=== PATIENT | female | born 1990 | race Caucasian/White ===

== ENCOUNTER 2018-08-02 09:34 | Emergency (ER) | payer OTHER, BC ==
[~2018-08-02] VITALS: Ht 170.2 cm; Wt 83.2 kg
[~2018-08-02 09:34] MED LIST: APRI 0.15 MG-0.1 TAB PO
[2018-08-02 09:42] VITALS: TEMP 98
[2018-08-02] MEDS ORDERED: PRENATAL MVI (09:44)
[2018-08-02 11:57] VITALS: BP 128/60; PULSE 82
== END 2018-08-02 11:57 | disposition home or self-care (01) ==
LOC: COL.ER 09:34
DX: Z04.1 Encounter for examination and observation following transport accident (principal)

== ENCOUNTER 2018-11-29 07:25 | Inpatient (IN) | payer BC ==
[~2018-11-29] VITALS: Ht 167.6 cm; Wt 98.6 kg
[2018-11-29] VITALS (9 sets, daily range): BP systolic 110–138; BP diastolic 64–90; PULSE 83–114; TEMP 97.7–98.1
[~2018-11-29 07:25] MED LIST changes: +PRENATAL MVI
--- NOTE | 2018-11-29 20:00 | NUR ---
1919- Patient ambulatory to LDR-6 with , Abelardo. Patient into restroom to change and void. 1922- Patient and spouse oriented to room. EFM and TOCO on and tracing. Assessment completed. Consents signed. Plan of care explained. Questions encouraged and answered. Contractions noted on FHT monitor. Patient denies LOF, bleeding, spotting, or feeling contractions. IV started. SVE unsuccessful by this RN. 1944- updated. Orders clarified. 1999- Cytotec given. LR infusing. See eMAR.
[2018-11-29 20:35] LABS: BASO % 0.3 % (0.0-2.0); EOS % 0.4 % (0-4.0); GRAN % 76.2 % (42.2-75.2); HEMATOCRIT 39.5 % (37.0-47.0); HEMOGLOBIN 13.3 g/dl (12.5-16.0); LYMPH # 1.3 (1.2-3.4); LYMPH % 16.5 % (20.0-51.0); MEAN CELL VOLUME 86 fl (80.0-100.0); MEAN CORPUSCULAR HEMOGLOBIN 29 pg (27.0-31.0); MEAN CORPUSCULAR HGB CONC 34 g/dl (33.0-37.0); MEAN PLATELET VOLUME 12.6 fl (7.4-10.4); MONO # 0.5 (0.1-0.6); MONO % 6.1 % (1.7-9.3); PLATELET COUNT 174 K/mm3 (130-400); RED BLOOD COUNT 4.59 M/mm3 (4.10-5.30); REDCELL DISTRIBUTION WIDTH-CV 13.7 % (11.5-14.5)
[2018-11-30] VITALS (85 sets, daily range): BP systolic 98–185; BP diastolic 51–100; PULSE 64–131; TEMP 97.3–98.6
--- NOTE | 2018-11-30 04:00 | NUR ---
2100- Vistaril given. See eMAR. 2200- EFM and TOCO off per protocol. Patient into restroom to void. Encourged patient and to rest. 2300- EFM and TOCO on and tracing. FHT reassuring. Contractions noted. 2330- EFM and TOCO on and tracing intermittently due to maternal position and active baby. called for an updated. See Physician Notification. 0000- Cytotec given. See eMAR. No SVE per . 0200- EFM and TOCO off per protocol. Patient into restroom to void. 0300- EFM and TOCO on and tracing. FHT reassuring. Contractions noted. 0350- EFM and TOCO off. Patien into restroom to void. 0400- SVE Fingertip/-3. Pitocin intiated per protocol at 2mU. 0435- RN called to bedside. Patient states she "thinks she peed her pants". Amniotrace positive. SROM. Moderate amount of clear, odorless fluid noted. Contraction pattern irregular. Patient denies pain or pressure from contractions.
--- NOTE | 2018-11-30 08:15 | NUR ---
Patient uncomfortable with contractions, breathing through them. SVE 3/80/-3, large amount of clear fluid noted with exam. Patient request epidural. IVF bolus started and [employer] notified.
--- NOTE | 2018-11-30 09:01 | NUR ---
0847 - NATHANIEL Aragon to room to place epidural. Patient sits upright on the edge of the bed for procedure. 0902 - Test dose administered by NATHANIEL Aragon. See anesthesia record for details. 0908 - Patient wedged to right side. Plan of care and safety precautions reviewed.
--- NOTE | 2018-11-30 10:10 | NUR ---
[id number] Intermittent late FHR decelerations noted. Moderate variability throughout. 0940 Bullard catheter placed and patient turned to high left side at 0948. 0948 Recurrent late decelerations noted with minimal variability. 0956 Patient turned to high right side. 0957 FHR deceleration down to 120 bpm lasting 90 seconds noted. 0959 BP: 105/54. 1002 FHR deceleration down to 140 bpm lasting 2 minutes. 1003 10 mg of ephedrine given IV. 1010 FHR 160 bpm with minimal variability. No decels noted.
--- NOTE | 2018-11-30 10:50 | NUR ---
Recurrent FHR decelerations noted. Patient turned to high left side. IVF infusing rapidly and O2 applied at 10L per mask. SVE 4-5/90/-[address] Montoya called and updated. Orders to stop pitocin received. 1051 Pitocin off. Plan of care reviewed with patient and spouse.
--- NOTE | 2018-11-30 11:30 | NUR ---
Dr. Montoya on unit, reviews FHR tracing. Orders to start pitocin at 8mu now. Pitocin started at 8mu per orders.
--- NOTE | 2018-11-30 11:45 | NUR ---
Dr. Montoya to [facility], [facility] [place] . Plan of care reviewed with patient and spouse.
--- NOTE | 2018-11-30 12:30 | NUR ---
1210 -1225 Recurrent late decelerations noted. Patient turned to right side with peanut ball between legs. Dr. Montoya called and updated. Orders to stop pitocin received. Pitocin off at 1227. Plan of care reviewed with patient and spouse.
--- NOTE | 2018-11-30 13:45 | NUR ---
SVE 6-7//-1. Patient assisted to sitting upright in bed. Pitocin started at 4mu per orders and protocol.
--- NOTE | 2018-11-30 17:55 | NUR ---
Patient c/o feeling increased pressure with contractions. SVE - complete/+1. 1755 Patient begins to push with contractions.
--- NOTE | 2018-11-30 23:00 | NUR ---
183- Bedside report from FLORINA Arellano. Patient has been pushing intermittently with RN for 30 minutes. This RN begins pushing with patient with contractions. 184- Patient repositioned to sitting upright. 1914- Patient repositioned to RL with peanut ball. 1924- RN at bedside. EFM and TOCO on and tracing intermittently due to maternal position. 1944- Patient states she is starting to feel more pressure. This RN begins pushing with patient with contractions. 1957- at bedside. 1999- MD begins pushing with patient. 2099- Patient repositioned to WL. Plan of care discussed with patient regarding fetus not descending into pelvis for delivery after >2 hours of pushing. section discussed with patient, spouse, and patient's mother by MD at this time. 2119- Patient decides to move forward with section at this time. NATHANIEL Aragon notified. Patient prepped in labor room for OR. 2135- Patient transferred to OR via bed.
[2018-12-01] VITALS (9 sets, daily range): BP systolic 119–135; BP diastolic 61–90; PULSE 86–115; TEMP 97.6–98.4
--- NOTE | 2018-12-01 | NUR ---
2146- Surgery starts. 2151- Delivery of baby boy. care taken over by FLORINA Candelario. 2153- Manual delivery of placenta. Cord blood collected. 2228- Surgery ends. 224- Patient transferred to PACU via bed. AOx3. 2315- Patient transferred to PP room via bed. 2330- PP Recovery starts.
--- NOTE | 2018-12-01 09:05 | NUR ---
Initial visit; Parents thanked for offering congratulations for the of their son. thanked family for choosing our hospital.
[2018-12-02 09:31] VITALS: BP 120/82; PULSE 103; TEMP 97.3
[2018-12-02] MEDS ORDERED: IBU600 MG PO (12:24)
[2018-12-02] MEDS ORDERED: PERCOCET 325 MG1 TA2 PO (12:24)
[2018-12-02 16:20] VITALS: BP 116/67; PULSE 100; TEMP 97.4
[2018-12-02 20:00] VITALS: BP 123/77; PULSE 100; TEMP 99
[2018-12-03 07:30] VITALS: BP 124/79; PULSE 100; TEMP 98.4
== END 2018-12-03 13:30 | disposition home or self-care (01) | DRG 788 ==
LOC: LDR 07:25 → OB 12-01 04:09
PROVIDERS: ADMIT Student in an Organized Health Care Education/Training Program
PROC: 3E0P7VZ Introduction of Hormone into Female Reproductive, Via Natural or Artificial Opening (ICD-10-PCS; 2018-11-29)
PROC: 10D00Z1 Extraction of Products of Conception, Low, Open Approach (ICD-10-PCS; principal; 2018-11-30)
PROC: 3E033VJ Introduction of Other Hormone into Peripheral Vein, Percutaneous Approach (ICD-10-PCS; 2018-11-30)
DX: O36.63X0 Maternal care for excessive fetal growth, third trimester, not applicable or unspecified (principal); Z3A.39 39 weeks gestation of pregnancy; Z37.0 Single live birth; O99.214 Obesity complicating childbirth; O76 Abnormality in fetal heart rate and rhythm complicating labor and delivery; O40.3XX0 Polyhydramnios, third trimester, not applicable or unspecified; O62.1 Secondary uterine inertia
CPT/HCPCS: J0690; J1885; J2270; J2405; J2590; J7120